=== PATIENT | male | born 1960 | race Hispanic/Latino ===

== ENCOUNTER → 2018-05-23 | Day surgery (SDC) | payer OTHER ==
[~2018-05-23] MED LIST: ANASTROZOLE1 MG PO; BENZONATATE200 MG PO; FENTANYL CITRATE/PF 100MCG/2 ML INJ ONE; FISH OIL 1,2001 EACH PO; GLUCAGON FOR INJ 1 MG VIAL ONE; LISINOPRIL5 MG PO; MIDAZOLAM HCL 2 MG/2 ML VIAL ONE; PANTOPRAZOLE SO40 MG PO; PRAVASTATIN SOD20 MG PO; PROPOFOL IV EMULSION 10 MG/ML 50 ML VIAL ONE; SIMVASTATIN20 MG; SIMVASTATIN40 MG PO; STRIANT30 MG PO; ZYRTEC10 M1 PO
--- NOTE | 2018-05-23 19:23 | Operative Report ---
DATE OF PROCEDURE: May 23, 2018 REFERRING PHYSICIAN: Dr. Neville Knowles. PROCEDURES PERFORMED 1. Esophagogastroduodenoscopy with biopsies. 2. Colonoscopy with polypectomy. INDICATIONS FOR EGD: Dyspepsia. INDICATIONS FOR COLONOSCOPY: History of colon polyps. MEDICATION: Patient was done under MAC. Please see anesthesiologist's note. PROCEDURE: With patient in left lateral decubitus position, a flexible fiberoptic Olympus gastroscope was introduced into the esophagus under direct visualization without any difficulty. There was some patchy erythema noted in distal esophagus. The scope was then advanced with ease into the stomach traversing an approximately 4-cm hiatal hernia. Mucosa overlying the antrum revealed some diffuse erythema and moderate edema, and biopsies were obtained and sent to stain for H. pylori. Several hyperplastic-appearing polyps were noted in the body. Some were partially excised with the cold biopsy forceps. The pylorus was of normal contour and shape. It was intubated with ease, and the scope was advanced all the way to the 2nd portion of the duodenum. The scope was then withdrawn slowly. Mucosa overlying the proximal 2nd portion appeared to be within normal limits. An approximately 6-mm nodule was noted in the duodenal bulb and that was biopsied. The scope was then withdrawn back into the stomach and retroflexed. Mucosa overlying the fundus appeared to be within normal limits. The previously described hiatal hernia was also noted in the retroflexed position. Some postoperative changes were also noted in the upper body. The scope was then straightened out. The stomach was decompressed. The scope was subsequently withdrawn. Patient tolerated the procedure well. IMPRESSION 1. Distal esophagitis, mild. 2. A 4-cm hiatal hernia. 3. Gastritis, biopsied. Biopsies sent to stain for Helicobacter pylori. 4. Gastric polyps, hyperplastic appearing, some partially excised with the cold biopsy forceps. 5. Duodenal bulb nodule, biopsied. PLAN: Follow up histology. Initiate Protonix 40 mg. 1 p.o. q.a.m. a.c. Patient was then turned around; and after adequate lubrication of the anal canal, a flexible fiberoptic Olympus colonoscope was inserted into the rectum with ease and advanced all the way to the cecum. The scope was then withdrawn slowly, and there was melanosis coli noted throughout the colon. Two polyps were hot biopsied from the transverse colon. Diverticular disease was noted to involve the sigmoid colon. Three polyps were hot biopsied from the sigmoid colon. Two polyps were hot biopsied from the rectum. The scope was then retroflexed into the distal rectum and small internal hemorrhoids were noted, none of which was actively bleeding. The scope was then straightened out and was subsequently withdrawn. Patient tolerated the procedure well. IMPRESSION 1. Melanosis coli. 2. Transverse colon polyps x 2, hot biopsied. 3. Diverticulosis. 4. Sigmoid colon polyps x 3, hot biopsied. 5. Rectal polyps x 2, hot biopsied. 6. Internal hemorrhoids, none actively bleeding. PLAN: Follow up histology. Initiate high-fiber, low-fat diet. Initiate high-fiber supplement. Patient will need a followup colonoscopy in 3 years. Job#: [id number] LPA cc:DR. NEVILLE KNOWLES
--- OUTSIDE RECORDS SUMMARY | 2018-06-02 11:55 | XMS REPORT ---
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 Jul 16, 2012 Active Problem 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 Problem Hyperlipidemia E78.5 Active Problem Hyperlipidemia 272.4 Active Problem Gallbladder sludge K82.8 Active Problem Abnormal findings on diagnostic imaging of liver and biliary tract R93.2 Active Problem Annual Physical (Routine general medical examination at health care facility) V70.0 Jun 23, 2012 Active Problem Familial hyperlipoproteinemia, 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 Jun 23, 2012 Active Problem Hepatic steatosis K76.0 Active Problem Hyperglycemia (Other abnormal blood chemistry) 790.6 Jul 16, 2012 Active Problem Mixed hyperlipidemia E78.2 Active Problem Male hypogonadism E29.1 Active Problem Elevated blood-pressure reading, without diagnosis of hypertension R03.0 Active Problem Type 2 diabetes mellitus with other specified complication E11.69 Active Problem Tension headache 307.81 Jun 23, 2012 Active Problem History of colon polyps V12.72 Active Problem Special screening for malignant neoplasms, colon V76.51 Jun 23, 2012 Active Problem Essential hypertension, benign 401.1 Jun 23, 2012 Active Problem Chronic rhinitis 472.0 Active Problem Essential hypertension, benign 401.1 Active Problem Nonspecific (abnormal) findings on radiological and other examination of gastrointestinal tract 793.4 Active Problem Hyperglycemia (Other abnormal blood chemistry) 790.6 Active Medications No Known Medications Results No Known Results Summary Purpose eClinicalWorks Submission
--- OUTSIDE RECORDS SUMMARY | 2018-06-02 11:55 | XMS REPORT | Continuity of Care Document ---
Author Author [facility] Interface Address Unknown Phone Unavailable Problems Problem Status Onset Date Classification Date Reported Comments Source Body mass index 25-29 - overweight 04/05/2018 Diagnosis 04/05/2018 [facility] Tachycardia 04/05/2018 Diagnosis 04/05/2018 [facility] Cough 04/05/2018 Diagnosis 04/05/2018 [facility] Posterior rhinorrhea 04/05/2018 Diagnosis 04/05/2018 [facility] Acute pharyngitis 04/05/2018 Diagnosis 04/05/2018 [facility] Viral upper respiratory tract infection 04/05/2018 Diagnosis 04/05/2018 [facility] Body Mass Index 25-29 - Overweight 04/05/2018 Problem 04/05/2018 [facility] Acute upper respiratory infection 09/17/2016 Diagnosis 09/17/2016 [facility] Influenza-like symptoms 06/23/2016 Diagnosis 06/23/2016 [facility] Headache Resolved 07/16/2012 Problem 04/10/2018 2.16.840.1.386601.4.391.11.28765 Tinnitus aurium Resolved 07/16/2012 Problem 04/10/2018 2.16.840.1.931525.4.391.11.13842 Annual Physical Resolved 06/23/2012 Problem 04/10/2018 2.16.840.1.361447.4.391.11.22150 Familial hyperlipoproteinemia, type I Resolved 06/23/2012 Problem 04/10/2018 2.16.840.1.712972.4.391.11.69909 Special screening for malignant neoplasms, colon Resolved 06/23/2012 Problem 04/10/2018 2.16.840.1.629754.4.391.11.96712 Hepatic steatosis Active Problem 04/10/2018 2.16.840.1.428237.4.391.11.69989 Abnormal findings on diagnostic imaging of liver and biliary tract Active Problem 04/10/2018 2.16.840.1.205067.4.391.11.66722 Gallbladder sludge Active Problem 04/10/2018 2.16.840.1.510295.4.391.11.16364 Nonspecific findings on radiological and other examination of gastrointestinal tract Active Problem 04/10/2018 2.16.840.1.535961.4.391.11.52073 Chronic rhinitis Active Problem 04/10/2018 2.16.840.1.518186.4.391.11.59411 Subjective tinnitus Active Problem 04/10/2018 2.16.840.1.436042.4.391.11.44923 Tension headache Active Problem 04/10/2018 2.16.840.1.549057.4.391.11.33982 Essential Familial Hyperlipidemia Active Problem 04/10/2018 2.16.840.1.533443.4.391.11.39828 Hyperlipidemia Active Problem 04/10/2018 2.16840.1.924084.4.391.11.02097 Hyperlipidemia Active Problem 04/10/2018 2.16.840.1.434132.4.391.11.62989 Hyperglycemia Active Problem 04/10/2018 2.16840.1.098067.4.391.11.81656 Mixed hyperlipidemia Active Diagnosis 04/10/2018 2.16.840.1.139250.4.391.11.70826 Male hypogonadism Active Diagnosis 04/10/2018 2.16840.1.952594.4.391.11.90902 Elevated blood-pressure reading, without diagnosis of hypertension Active Problem 04/10/2018 2.16.840.1.837655.4.391.11.81512 Type 2 diabetes mellitus with other specified complication Active Problem 04/10/2018 2.16.840.1.262147.4.391.11.05211 History of colon polyps Active Problem 04/10/2018 2.16.840.1.091170.4.391.11.74135 Essential hypertension, benign Active Problem 04/10/2018 2.16.840.1.418835.4.391.11.65629 RUQ abdominal pain Active Problem 04/10/2018 2.16.840.1.886296.4.391.11.61792 History of BPH Active Problem 04/10/2018 2.16.840.1.826494.4.391.11.71947 Elevated hematocrit Active Problem 04/10/2018 2.16.840.1.692938.4.391.11.34694 Alopecia areata Active Diagnosis 11/28/2016 2.16.840.1.082330.4.391.11.86411 Hyperlipemia, mixed Active Problem 11/28/2016 2.16.840.1.186880.4.391.11.84959 Neurasthenia Active Diagnosis 02/16/2016 2.16.840.1.686418.4.391.11.92381 Elevated blood pressure Active Diagnosis 02/16/2016 2.16.840.1.919632.4.391.11.20150 Overweight Active Diagnosis 02/16/2016 2.16.840.1.308693.4.391.11.39447 Hx of colonic polyps Active Problem 04/10/2018 2.16.840.1.020610.4.391.11.28120 High serum estradiol Active Problem 04/10/2018 2.16.840.1.392701.4.391.11.26939 Otitis Media Problem 09/17/2016 [facility] Allergic Rhinitis Problem 09/17/2016 [facility] Influenza Problem 09/17/2016 [facility] Influenza-like Symptoms Problem 09/17/2016 [facility] Medications Medication Details Route Status Patient Instructions Ordering Provider Order Date Source Anastrozole 1 tablet Orally Active 1 MG Orally Once per week Knowles 07/06/2018 2.16.840.1.277852.4.391.11.88765 Anastrozole 1 tablet Orally Active 1 MG Orally Once per week Knowles 09/04/2017 2.16.840.1.184924.4.391.11.61124 Axiron 1 pump under each axilla Topical Active 30 MG/ACT Topical once a day Knowles 08/23/2016 2.16.840.1.893994.4.391.11.19211 Axiron 1 pump under each axilla Topical Active 30 MG/ACT Topical once a day Knowles 08/23/2016 2.16.840.1.489287.4.391.11.80912 AndroGel 1 pump application to each shoulder Transdermal Active 40.5 MG/2.5GM (1.62%) Transdermal Once a day Knowles 08/20/2016 2.16.840.1.160308.4.391.11.94598 Simvastatin 1 tablet in the evening Orally Active 40 MG Orally Once a day Knowles 06/29/2015 2.16.840.1.083798.4.391.11.48807 Simvastatin 1 tablet in the evening Orally Active 40 mg Orally Once a day Knowles 06/29/2015 2.16.840.1.996336.4.391.11.75232 Cetirizine HCl 1 tablet Orally Active 10 MG Orally Once a day Knowles 2.16840.1.366892.4.391.11.55505 ZyrTEC 1 tablet as needed Orally Active 10 MG Orally Once a day Knowles 2.840.1.791987.4.391.11.86176 Clobetasol Propionate 1 application to affected area Externally Active 0.05 % Externally Twice a day Knowles 2.840.1.182840.4.391.11.32384 ZyrTEC 1 tablet as needed Orally Active 10 MG Orally Once a day Knowles 2.16840.1.189751.4.391.11.48011 Fluticasone Propionate 1 spray in each nostril Nasally Active 50 MCG/ACT Nasally twice a day (bid) Knowles 2.16840.1.215828.4.391.11.32855 Simvastatin 1 tablet in the evening Orally Active 40 mg Orally Once a day Knowles 2.16840.1.608543.4.391.11.16827 Axiron 1 pump under each axilla Topical Active 30 MG/ACT Topical once a day Knowles 2.16840.1.833622.4.391.11.48200 Anastrozole 1 tablet Orally Active 1 MG Orally Once per week Knowles 2.840.1.378178.4.391.11.83666 Fluticasone propionate 0.05 MG/ACTUAT Metered Dose Nasal [place] fluticasone 50 mcg/actuation nasal spray,suspension [place] 2 sprays twice a day by intranasal route as directed for 10 days. Active [facility] Simvastatin 40 MG Oral Tablet simvastatin 40 mg tablet Active [facility] 60 ACTUAT Testosterone 30 MG/ACTUAT Topical Solution [Axiron] Axiron 30 mg/actuation (1.5 mL) transderm solution in metered pump Active [facility] Brompheniramine Maleate 0.4 MG/ML / Dextromethorphan Hydrobromide 2 MG/ML / Pseudoephedrine Hydrochloride 6 MG/ML Oral Solution [Bromfed DM] Bromfed DM 2 mg-30 mg-10 mg/5 mL syrup Take 10 mL 3 times a day by oral route. Active [facility] Oseltamivir 75 MG Oral Capsule [Tamiflu] Tamiflu 75 mg capsule Active [facility] Allergies, Adverse Reactions, Alerts Substance Category Reaction Severity Reaction type Status Date Reported Comments Source N.K.D.A. Adverse Reaction Info Not Available Adverse Reaction Active 04/07/2018 2.16.840.1.753359.4.391.11.98191 Immunizations Immunization Date Given Site Status Last Updated Comments Source FLUVIRIN - Influenza (split) 08/20/2016 completed 2.16.840.1.689871.4.391.11.18136 Results Order Name Results Value Reference Range Date Interpretation Comments Source RESULT negative 04/05/2018 [facility] SWAB LOCATION Left and Right tonsillar pillars 04/05/2018 [facility] Influenza A negative 04/05/2018 [facility] Influenza B negative 04/05/2018 [facility] Influenza A negative 06/23/2016 [facility] Influenza B negative 06/23/2016 [facility] Vital Signs Vital Sign Value Date Comments Source Weight 164.6 04/07/2018 2.16.840.1.774025.4.391.11.79977 Height 65 04/07/2018 2.16.840.1.057927.4.391.11.84887 Temperature Oral (F) 97.0 F 04/07/2018 2.16.840.1.174669.4.391.11.94868 Heart Rate 96 04/07/2018 2.16.840.1.468221.4.391.11.65806 Diastolic (mm Hg) 70 04/05/2018 [facility] Height 65 04/05/2018 [facility] Systolic (mm Hg) 100 04/05/2018 [facility] Weight 166 04/05/2018 [facility] Weight 163 12/25/2017 2.16.840.1.914193.4.391.11.42176 Height 65 12/25/2017 2.16.840.1.384412.4.391.11.93328 Temperature Oral (F) 97.1 F 12/25/2017 2.16.840.1.136698.4.391.11.04767 Heart Rate 82 12/25/2017 2.16.840.1.788545.4.391.11.51193 Weight 162.8 11/10/2017 2.16.840.1.357239.4.391.11.95348 Height 65 11/10/2017 2.16.840.1.817709.4.391.11.97541 Temperature Oral (F) 97.8 F 11/10/2017 2.16.840.1.982274.4.391.11.18658 Heart Rate 80 11/10/2017 2.16.840.1.365916.4.391.11.85076 Weight 163 09/04/2017 2.16.840.1.660939.4.391.11.61187 Height 65 09/04/2017 2.16.840.1.478131.4.391.11.25626 Temperature Oral (F) 98.6 F 09/04/2017 2.16.840.1.891929.4.391.11.04512 Heart Rate 78 09/04/2017 2.16.840.1.864688.4.391.11.13460 Weight 161.8 05/29/2017 2.16.840.1.791677.4.391.11.20989 Height 65 05/29/2017 2.16.840.1.592232.4.391.11.22269 Temperature Oral (F) 97.3 F 05/29/2017 2.16.840.1.804404.4.391.11.17457 Heart Rate 72 05/29/2017 2.16.840.1.955308.4.391.11.78764 Weight 163 05/01/2017 2.16.840.1.873881.4.391.11.61302 Height 65 05/01/2017 2.16.840.1.784347.4.391.11.01214 Temperature Oral (F) 97.8 F 05/01/2017 2.16.840.1.588259.4.391.11.31963 Heart Rate 71 05/01/2017 2.16.840.1.284626.4.391.11.53025 Weight 161.4 02/27/2017 2.16.840.1.862350.4.391.11.63404 Height 65 02/27/2017 2.16.840.1.476590.4.391.11.92082 Temperature Oral (F) 97.7 F 02/27/2017 2.16.840.1.372005.4.391.11.01515 Heart Rate 73 02/27/2017 2.16.840.1.053603.4.391.11.68688 Weight 158.2 11/14/2016 2.16.840.1.337113.4.391.11.40416 Height 65 11/14/2016 2.16.840.1.951325.4.391.11.07869 Temperature Oral (F) 97.1 F 11/14/2016 2.16.840.1.499976.4.391.11.96823 Heart Rate 66 11/14/2016 2.16.840.1.572406.4.391.11.42353 Diastolic (mm Hg) 76 09/17/2016 [facility] Height 65 09/17/2016 [facility] Systolic (mm Hg) 120 09/17/2016 [facility] Weight 161 09/17/2016 [facility] Weight 168 08/20/2016 2.16.840.1.320144.4.391.11.57349 Height 65 08/20/2016 2.16.840.1.606652.4.391.11.08653 Temperature Oral (F) 97.3 F 08/20/2016 2.16.840.1.305723.4.391.11.24808 Heart Rate 80 08/20/2016 2.16.840.1.899796.4.391.11.90416 Diastolic (mm Hg) 80 06/23/2016 [facility] Height 65 06/23/2016 [facility] Systolic (mm Hg) 130 06/23/2016 [facility] Weight 168 06/23/2016 [facility] Weight 167.4 02/12/2016 2.16.840.1.343707.4.391.11.55347 Height 65 02/12/2016 2.16.840.1.733500.4.391.11.16393 Temperature Oral (F) 98.4 F 02/12/2016 2.16.840.1.789667.4.391.11.91604 Heart Rate 78 02/12/2016 2.16.840.1.654886.4.391.11.51294 Encounters Location Location Details Encounter Type Encounter Number Reason For Visit Attending Provider ADM Date DC Date Status Source Aldair Knowles MD [facility] follow up labs [id number] 02/12/2016 02/12/2016 2.16.840.1.971019.4.391.11.18202 Aldair Knowles MD [facility] follow up labs [id number] 02/12/2016 02/12/2016 2.16.840.1.001927.4.391.11.51663 Aldair Knowles MD [facility] follow up labs [id number] 02/12/2016 02/12/2016 2.16.840.1.847061.4.391.11.36520 Aldair Knowles MD [facility] follow up labs [id number] 02/12/2016 02/12/2016 2.16.840.1.864768.4.391.11.91728 Aldair Knowles MD [facility] follow up labs [id number] 02/12/2016 02/12/2016 2.16.840.1.226064.4.391.11.22397 Aldair Knowles MD [facility] follow up labs [id number] 02/12/2016 02/12/2016 2.16.840.1.405781.4.391.11.97226 Aldair Knowles MD [facility] follow up labs [id number] 02/12/2016 02/12/2016 2.16.840.1.351161.4.391.11.24381 [place] [id number] Lyndsey Pan, [employer]: [address] [facility], [place] [address], Ph. [id number] Lyndsey Pan 06/23/2016 Echo Knowles MD [facility] labs & refills [id number] 08/20/2016 08/20/2016 2.16.840.1.141224.4.391.11.90437 Aldair Knowles MD [facility] labs & refills [id number] 08/20/2016 08/20/2016 2.16.840.1.136957.4.391.11.53985 Aldair Knowles MD [facility] labs & refills [id number] 08/20/2016 08/20/2016 2.16.840.1.015722.4.391.11.52041 Aldair Knowles MD [facility] labs & refills [id number] 08/20/2016 08/20/2016 2.16.840.1.470278.4.391.11.51708 Aldair Knowles MD [facility] Needs call back from Medical Staff [id number] 08/22/2016 08/22/2016 2.16.840.1.456859.4.391.11.41082 Aldair Knowles MD [facility] Needs call back from Medical Staff [id number] 08/22/2016 08/22/2016 2.16.840.1.536425.4.391.11.95012 Aldair Knowles MD [facility] Needs call back from Medical Staff [id number] 08/22/2016 08/22/2016 2.16.840.1.439370.4.391.11.17983 Aldair Knowles MD [facility] Needs call back from Medical Staff [id number] 08/22/2016 08/22/2016 2.16.840.1.222505.4.391.11.53517 Aldair Knowles MD [facility] Needs call back from Medical Staff [id number] 08/22/2016 08/22/2016 2.16.840.1.743913.4.391.11.16981 Aldair Knowles MD [facility] Needs call back from Medical Staff [id number] 08/22/2016 08/22/2016 2.16.840.1.258364.4.391.11.48155 Aldair Knowles MD [facility] Needs call back from Medical Staff [id number] 08/22/2016 08/22/2016 2.16.840.1.581062.4.391.11.76955 Aldair Knowles MD [facility] Needs call back from Medical Staff [id number] 08/22/2016 08/22/2016 2.16.840.1.773326.4.391.11.92004 Aldair Knowles MD [facility] Needs call back from Medical Staff [id number] 08/22/2016 08/22/2016 2.16.840.1.511381.4.391.11.72230 Aldair Knowles MD [facility] Needs call back from Medical Staff [id number] 08/22/2016 08/22/2016 2.16.840.1.846629.4.391.11.35645 Aldair Knowles MD [facility] Needs call back from Medical Staff [id number] 08/22/2016 08/22/2016 2.16.840.1.840308.4.391.11.71745 Aldair Knowles MD [facility] Needs call back from Medical Staff [id number] 08/22/2016 08/22/2016 2.16.840.1.648570.4.391.11.35344 Aldair Knowles MD [facility] Other [id number] 08/23/2016 08/23/2016 2.16.840.1.876695.4.391.11.08891 Aldair Knowles MD [facility] Other [id number] 08/23/2016 08/23/2016 2.16.840.1.291061.4.391.11.15939 Aldair Knowles MD [facility] Other [id number] 08/23/2016 08/23/2016 2.16.840.1.577234.4.391.11.86493 [place] - [facility] - [id number]_Nlvblait Bipin Pan, [employer]-C: [address] [place] [address], Ph. [id number] Bipin Pan 09/17/2016 Echo Knowles MD [facility] Axiron refill not covered by insurance [id number] 10/01/2016 10/01/2016 2.16.840.1.257109.4.391.11.21752 Aldair Knowles MD [facility] Axiron refill not covered by insurance [id number] 10/01/2016 10/01/2016 2.16.840.1.498837.4.391.11.03353 Aldair Knowles MD [facility] Prior Auth [id number] 10/02/2016 10/02/2016 2.16.840.1.680650.4.391.11.77001 Aldair Knowles MD [facility] Prior Auth [id number] 10/02/2016 10/02/2016 2.16.840.1.193857.4.391.11.29398 [place] - [facility] - [id number][facility]du[facility] Cassie Templeton PA-C: [address] [place] [address], Ph. [id number] Cassie Templeton 04/05/2018 [facility] Procedures Procedure Code Date Perfomer Comments Source
--- OUTSIDE RECORDS SUMMARY | 2018-06-02 11:55 | XMS REPORT ---
Author Author Aldair Knowles Organization [employer] Address Unknown Phone Unavailable Care Team Providers Care Bean Snapper Name Role Phone Aldair Knowles CP Unavailable Allergies No Known Allergies Problems Problem Type Condition Code Onset Dates Condition Status Assessment Hepatic steatosis K76.0 Active Assessment Abnormal findings on diagnostic imaging of liver and biliary tract R93.2 Active Assessment Gallbladder sludge K82.8 Active Problem Nonspecific (abnormal) findings on radiological [...]
--- OUTSIDE RECORDS SUMMARY | 2018-06-02 11:55 | XMS REPORT ---
Author Author Aldair Knowles Organization [employer] Address Unknown Phone Unavailable Care Team Providers Care Cad Application Support Specialist Name Role Phone Aldair Knowles CP Unavailable [...]
--- OUTSIDE RECORDS SUMMARY | 2018-06-02 11:55 | XMS REPORT ---
Author Author Aldair Knowles Organization [employer] Address Unknown Phone Unavailable Care Team Providers Care Senior Courtroom Clerk Name Role Phone Aldair Knowles CP Unavailable Allergies No Known Allergies Problems Problem Type Condition Code Onset Dates Condition Status Assessment History of BPH Z87.438 Active Problem Nonspecific (abnormal) findings on radiological and other examination of gastrointestinal tract 793.4 Jul 16, 2012 Active Problem Special screening for malignant neoplasms, colon V76.51 Jun 23, 2012 Active Problem Annual Physical (Routine general medical examination at health care facility) V70.0 Jun 23, 2012 Active Problem Tension headache 307.81 Jun 23, 2012 Active Problem Essential hypertension, benign 401.1 Jun 23, 2012 Active Problem Hyperlipidemia 272.4 Active Problem Chronic rhinitis 472.0 Jul 16, 2012 Active Problem Hyperlipidemia E78.5 Active Problem Hyperglycemia (Other abnormal blood chemistry) 790.6 Jul 16, 2012 Active Problem Male hypogonadism E29.1 Active Problem Type 2 diabetes mellitus with other specified complication E11.69 Active Problem Mixed hyperlipidemia E78.2 Active Problem RUQ abdominal pain R10.11 Active Problem History of BPH Z87.438 Active Problem 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 Jul 16, 2012 Active Problem Familial hyperlipoproteinemia, 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 Jun 23, 2012 Active Problem Elevated hematocrit R71.8 Active Problem Headache 784.0 Jul 16, 2012 Active Problem Gallbladder sludge K82.8 Active Problem Elevated blood-pressure reading, without diagnosis of hypertension R03.0 Active Problem Hepatic steatosis K76.0 Active Problem Abnormal findings on diagnostic imaging of liver and biliary tract R93.2 Active Problem Essential hypertension, benign 401.1 Active Problem Subjective tinnitus 388.31 Active Problem History of colon polyps V12.72 Active Problem Chronic rhinitis 472.0 Active Problem Hyperglycemia (Other abnormal blood chemistry) 790.6 Active Problem Nonspecific (abnormal) findings on radiological and other examination of gastrointestinal tract 793.4 Active Problem Tension headache 307.81 Active Problem 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
--- OUTSIDE RECORDS SUMMARY | 2018-06-02 11:55 | XMS REPORT ---
Author Author Aldair Knowles Organization [employer] Address Unknown Phone Unavailable Care Team Providers Care Manager Programs Name Role Phone Aldair Knowles CP Unavailable [...]
--- OUTSIDE RECORDS SUMMARY | 2018-06-02 11:55 | XMS REPORT ---
Author Author Aldair Knowles [facility] eClinical[employer] Address Unknown Phone Unavailable Care Team Providers Care Rotary Dryer Operator Name Role Phone Aldair Knowles CP Unavailable Allergies, Adverse Reactions, Alerts Substance Reaction Event Type N.K.D.A. Info Not Available Non Drug Allergy Problems Problem Type Condition Code Onset Dates Condition Status Assessment Elevated blood-pressure reading, without diagnosis of hypertension R03.0 Active Assessment Alopecia areata L63.9 Active Assessment Mixed hyperlipidemia E78.2 Active Problem Hyperglycemia (Other abnormal blood chemistry) 790.6 Active Assessment Male hypogonadism E29.1 Active Problem Chronic rhinitis 472.0 Active Problem Nonspecific (abnormal) findings on radiological and other examination of gastrointestinal tract 793.4 Jul 16, 2012 Active Problem Essential hypertension, benign 401.1 Active Problem Tension headache 307.81 Active Problem Subjective tinnitus 388.31 Active Problem Type 2 diabetes mellitus with other specified complication E11.69 Active Problem Mixed hyperlipidemia E78.2 Active Problem 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6 Jul 16, 2012 Active Problem Familial hyperlipoproteinemia, 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 Jun 23, 2012 Active Problem History of colon polyps V12.72 Active Problem Nonspecific (abnormal) findings on radiological and other examination of gastrointestinal tract 793.4 Active Problem Essential hypertension, benign 401.1 Jun 23, 2012 Active Problem Tension headache 307.81 Jun 23, 2012 Active Medications Medication Code System Code Instructions Start Date End Date Status Dosage ZyrTEC NDC 0 10 MG Orally Once a day Active 1 tablet as needed Axiron NDC [address]-47 30 MG/ACT Topical once a day Aug 23, 2016 Active 1 [place] [address]-15 40 MG Orally Once a day Jun 29, 2015 Active 1 tablet in the evening Vital Signs Date/Time: November 14, 2016 Weight 158.2 lbs Height 65 in Temperature 97.1 F Cardiac Monitoring Heart Rate 66 /min BMI 26.32 Index Results No Known Results Summary Purpose eClinicalWorks Submission
--- OUTSIDE RECORDS SUMMARY | 2018-06-02 11:55 | XMS REPORT ---
Author Author Aldair Knowles [facility] eClinical[employer] Address Unknown Phone Unavailable Care Team Providers Care Cook Specialty Foreign Food Name Role Phone Aldair Knowles CP Unavailable Allergies, Adverse Reactions, Alerts Substance Reaction Event Type N.K.D.A. Info Not Available Non Drug Allergy Problems Problem Type Condition Code Onset Dates Condition Status Problem Hyperglycemia (Other abnormal blood chemistry) 790.6 Active Assessment RUQ abdominal pain R10.11 Active Problem Chronic rhinitis 472.0 Active Problem [...] Headache 784.0 Jul 16, 2012 Active Problem Elevated blood-pressure reading, without diagnosis of hypertension R03.0 Active Problem Chronic rhinitis 472.0 Jul 16, [...] Instructions Start Date End Date Status Dosage Axiron [facility] [place] [address]-82 30 MG/ACT Topical once a day Aug 23, 2016 Active 1 pump under each axilla Cetirizine HCl [facility] [address]-50 10 MG Orally Once a day Active 1 tablet Simvastatin [facility] [address]-01 40 MG Orally Once a day Jun 29, 2015 Active 1 tablet in the evening Vital Signs Date/Time: May 01, 2017 Weight 163 lbs Height 65 in Temperature 97.8 F Cardiac Monitoring Heart Rate 71 /min BMI 27.12 Index Results No Known Results Summary Purpose eClinicalWorks Submission
--- OUTSIDE RECORDS SUMMARY | 2018-06-02 11:55 | XMS REPORT ---
Author Author Aldair Knowles [facility] eClinical[employer] Address Unknown Phone Unavailable Care Team Providers Care Linen Manager Name Role Phone Aldair Knowles CP Unavailable Allergies, Adverse Reactions, Alerts Substance Reaction Event Type N.K.D.A. Info Not Available Non Drug Allergy Problems Problem Type Condition Code Onset Dates Condition Status Assessment Hepatic steatosis K76.0 Active Assessment Gallbladder sludge K82.8 Active Assessment Mixed hyperlipidemia E78.2 Active Assessment Male hypogonadism E29.1 Active Problem Nonspecific (abnormal) findings on radiological [...] liver and biliary tract R93.2 Active Assessment Elevated hematocrit R71.8 Active Problem Essential hypertension, benign 401.1 Active Assessment History of BPH Z87.438 Active Problem Subjective tinnitus 388.31 Active Assessment Annual physical exam Z00.00 Active Problem History of colon polyps V12.72 Active Assessment RUQ abdominal pain R10.11 Active Problem Chronic rhinitis 472.0 Active Problem Hyperglycemia (Other abnormal blood chemistry) 790.6 Active Problem Nonspecific (abnormal) findings on radiological and other examination of gastrointestinal tract 793.4 Active Problem Tension headache 307.81 Active Problem 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
--- OUTSIDE RECORDS SUMMARY | 2018-06-02 11:55 | XMS REPORT ---
Author Author Aldair Knowles [facility] eClinical[employer] Address Unknown Phone Unavailable Care Team Providers Care Railroad Car Cleaner Name Role Phone Aldair Knowles CP Unavailable Allergies, Adverse Reactions, Alerts Substance Reaction Event Type N.K.D.A. Info Not Available Non Drug Allergy Problems Problem Type Condition Code Onset Dates Condition Status Assessment Male hypogonadism E29.1 Active Assessment Elevated blood-pressure reading, without diagnosis of hypertension R03.0 Active Problem Hyperglycemia (Other abnormal blood chemistry) 790.6 Active Assessment Mixed hyperlipidemia E78.2 Active Problem Chronic rhinitis 472.0 Active Problem [...] Instructions Start Date End Date Status Dosage Simvastatin [facility] [address]-29 40 MG Orally Once a day Jun 29, 2015 Active 1 tablet in the evening ZyrTEC NDC 0 10 MG Orally Once a day Active 1 tablet as needed Axiron [facility] 2] [address]-86 30 MG/ACT Topical once a day Aug 23, 2016 Active 1 pump under each axilla Clobetasol Propionate [facility] 2] [address]-87 0.05 % Externally Twice a day Active 1 application to affected area Vital Signs Date/Time: February 27, 2017 Weight 161.4 lbs Height 65 in Temperature 97.7 F Cardiac Monitoring Heart Rate 73 /min BMI 26.86 Index Results No Known Results Summary Purpose eClinicalWorks Submission
--- OUTSIDE RECORDS SUMMARY | 2018-06-02 11:56 | XMS REPORT ---
Author Author Aldair Knowles [facility] eClinicalWorks Address Unknown Phone Unavailable Care Team Providers Care Provider Network Analyst Name Role Phone Aldair Knowles CP Unavailable Allergies, Adverse Reactions, Alerts Substance Reaction Event Type N.K.D.A. Info Not Available Non Drug Allergy Problems Problem Type Condition Code Onset Dates Condition Status Assessment Elevated hematocrit R71.8 Active Assessment High serum estradiol R79.89 Active Assessment Mixed hyperlipidemia E78.2 Active Assessment [...] Start Date End Date Status Dosage Axiron [facility] 95854692659 30 MG/ACT Topical once a day Active 1 pump under each axilla Simvastatin [facility] 39718131900 40 mg Orally Once a day Active 1 tablet in the evening Anastrozole [facility] 84152869033 1 MG Orally Once per week Sep 04, 2017 Active 1 tablet Vital Signs Date/Time: Sep 04, 2017 Weight 163 lbs Height 65 in Temperature 98.6 F Cardiac Monitoring Heart Rate 78 /min BMI 27.12 Index Results No Known Results Summary Purpose eClinicalWorks Submission
--- OUTSIDE RECORDS SUMMARY | 2018-06-02 11:56 | XMS REPORT ---
Author Author Aldair Knowles [facility] eClinicalWorks Address Unknown Phone Unavailable Care Team Providers Care Commissary Representative Name Role Phone Aldair Knowles CP Unavailable Allergies, Adverse Reactions, Alerts Substance Reaction Event Type N.K.D.A. Info Not Available Non Drug Allergy Problems Problem Type Condition Code Onset Dates Condition Status Assessment Annual physical exam Z00.00 Active Problem Nonspecific (abnormal) findings on radiological [...] Instructions Start Date End Date Status Dosage Anastrozole [facility] 53642429307 1 MG Orally Once per week Sep 04, 2017 Active 1 tablet Simvastatin [facility] 02622689139 40 mg Orally Once a day Active 1 tablet in the evening Axiron [facility] 90645035246 30 MG/ACT Topical once a day Active 1 pump under each axilla Vital Signs Date/Time: November 10, 2017 Weight 162.8 lbs Height 65 in Temperature 97.8 F Cardiac Monitoring Heart Rate 80 /min BMI 27.09 Index Results No Known Results Summary Purpose eClinicalWorks Submission
--- OUTSIDE RECORDS SUMMARY | 2018-06-02 11:56 | XMS REPORT ---
Author Author Aldair Knowles [facility] eClinicalWorks Address Unknown Phone Unavailable Care Team Providers Care Boning Room Worker Name Role Phone Aldair Knowles CP Unavailable [...] Start Date End Date Status Dosage Anastrozole [facility] 53577481046 1 MG Orally Once per week Active 1 tablet Simvastatin [facility] 27078814284 40 mg Orally Once a day Active 1 tablet in the evening Axiron [facility] 02241730625 30 MG/ACT Topical once a day Active 1 pump under each axilla Vital Signs Date/Time: December 25, 2017 Weight 163 lbs Height 65 in Temperature 97.1 F Cardiac Monitoring Heart Rate 82 /min BMI 27.12 Index Results No Known Results Summary Purpose eClinicalWorks Submission
--- OUTSIDE RECORDS SUMMARY | 2018-06-02 11:56 | XMS REPORT ---
Author Author Aldair Knowles [facility] eClinicalWorks Address Unknown Phone Unavailable Care Team Providers Care Road Roller Operator Name Role Phone Aldair Knowles Unavailable Encounters Encounter Location Date follow up labs Aldair Knowles MD [facility] February 12, 2016 Needs call back from Medical Staff Aldair Knowles MD [facility] Aug 22, 2016 Needs call back from Medical Staff Aldair Knowles MD [facility] Aug 22, 2016 Problems Problem Type Condition ICD-9 Code Onset Dates Condition Status Problem Chronic rhinitis 472.0 Active Problem Subjective tinnitus 388.31 Active Problem Essential hypertension, benign 401.1 Active Problem Mixed hyperlipidemia E78.2 Active Problem Headache 784.0 Jul 16, 2012 Active Problem Male hypogonadism E29.1 Active Problem Chronic rhinitis 472.0 Jul 16, 2012 Active Problem Nonspecific (abnormal) findings on radiological and other examination of gastrointestinal tract 793.4 Jul 16, 2012 Active Problem Type 2 diabetes mellitus with other specified complication E11.69 Active Problem 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 Problem Tension headache 307.81 Active Problem Hyperlipidemia E78.5 Active Problem Hyperlipidemia 272.4 Active Problem Familial hyperlipoproteinemia, 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 Jun 23, 2012 Active Problem Annual Physical (Routine general medical examination at health care facility) V70.0 Jun 23, 2012 Active Problem 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 Jul 16, 2012 Active Problem Hyperglycemia (Other abnormal blood chemistry) 790.6 Jul 16, 2012 Active Problem Tension headache 307.81 Jun 23, 2012 Active Problem History of colon polyps V12.72 Active Problem Special screening for malignant neoplasms, colon V76.51 Jun 23, 2012 Active Problem Nonspecific (abnormal) findings on radiological and other examination of gastrointestinal tract 793.4 Active Problem Essential hypertension, benign 401.1 Jun 23, 2012 Active Problem Hyperglycemia (Other abnormal blood chemistry) 790.6 Active Social History Social History Element Qualifiers Date Reported Supplements . Do you use supplements Yes flax seed and omega-3 Aug 20, 2016 Tobacco Use: . Are you a: former smoker quit 10-2012 Aug 20, 2016 Caffeine intake? . Status: Yes, What type: Coffee, Soft Drinks 3 coffees per day Aug 20, 2016 Do you drink alcohol? . Status: Yes, Type: Liquor mixed drinks, Frequency Socially, Quantity 1 Aug 20, 2016 Summary Purpose eClinicalWorks Submission
--- OUTSIDE RECORDS SUMMARY | 2018-06-02 11:56 | XMS REPORT ---
Author Author Aldair Knowles [employer] Address Unknown Phone Unavailable Care Team Providers Care Mold Swabber Name Role Phone Aldair Knowles CP Unavailable Encounters Encounter Location Date labs & refills Aldair Knowles MD [facility] Aug 20, 2016 Other Aldair Knowles MD [facility] Aug 23, 2016 follow up labs Aldair Knowles MD [facility] February 12, 2016 Needs call back from Medical Staff Aldair Knowles MD [facility] Aug 22, 2016 Needs call back from Medical Staff Aldair Knowles MD [facility] Aug 22, 2016 Problems Problem Type [...] other examination of gastrointestinal tract 793.4 Active Assessment Male hypogonadism E29.1 Active Problem Essential hypertension, benign 401.1 Jun 23, 2012 Active Problem Hyperglycemia (Other abnormal blood chemistry) 790.6 Active Medications Medication Code System Code Instructions Start Date End Date Status Dosage Axiron [facility] [address]-78 30 MG/ACT Topical once a day Aug 23, 2016 Active 1 pump under each axilla AndroGel [facility] [address]-06 40.5 MG/2.5GM (1.62%) Transdermal Once a day Aug 20, 2016 Active 1 pump application to each shoulder Social History Social History Element Qualifiers Date Reported Supplements . Do you use supplements Yes flax seed and omega-3 Aug 20, 2016 Tobacco Use: . Are you a: former smoker quit Aug 20, 2016 Caffeine intake? . Status: Yes, What type: Coffee, Soft Drinks 3 coffees per day Aug 20, 2016 Do you drink alcohol? . Status: Yes, Type: Liquor mixed drinks, Frequency Socially, Quantity 1 Aug 20, 2016 Summary Purpose eClinicalWorks Submission
--- OUTSIDE RECORDS SUMMARY | 2018-06-02 11:56 | XMS REPORT ---
Author Author [facility] Address Unknown Phone Unavailable Care Team Providers Care Mule Driver Name Role Phone NEVILLE GARCIA Unavailable Unavailable Problems This patient has no known problems. Allergies, Adverse Reactions, Alerts This patient has no known allergies or adverse reactions. Medications This patient has no known medications. Results Test Description Test Time Test Comments Text Results Atomic Results Result Comments HEPTOBILIARY W PHARM [place] [address] Patient Name: RITO BYERS MR #: [id number] : 1960 Age/Sex: 57/M Req #: [id number] Adm Physician: Ordered by: NEVILLE GARCIA MD Report #: [id number] Location: [place] Room/Bed: Procedure: [id number] NM/HEPTOBILIARY W PHARM Exam Date: 05/22/17 Exam Time: 1315 REPORT STATUS: Signed Hepatobiliary Scan with Gallbladder Ejection Fraction Clinical information: RUQ abdominal pain x 1 month. Report: Following intravenous administration of 6.3 millicuries of Tc-99m mebrofenin, dynamic images of the abdomen in the anterior projection were obtained through 30 minutes. Sincalide (CCK analog) 1.7 micrograms was administered intravenously over 30 minutes with additional imaging for determination of gallbladder ejection fraction. Perfusion to the liver is normal. Extraction of tracer from the blood pool by the liver parenchyma is normal. Tracer is seen promptly within the biliary tract. The gallbladder begins to fill by 6 minutes post-injection of tracer and fills adequately. Tracer is seen in the small bowel by 20 minutes. The gallbladder ejection fraction with administration of sincalide is 96% (normal greater than 40%). Impression: 1. Filling of the gallbladder excludes the diagnosis of acute cystic duct obstruction/acute cholecystitis. 2. Normal gallbladder ejection fraction of 96% does not support the clinical diagnosis of chronic cholecystitis/gallbladder dyskinesia. Signed by: Dr. Livia Mazariegos M.D. on 05/22/2017 5:30 PM Dictated By: LIVIA MAZARIEGOS MD 29 Transcribed By: ALISE on 05/22/171729 COPY TO: NEVILLE GARCIA MD US ABDOMEN COMPLETE [place] [address] Patient Name: RITO BYERS MR #: [id number] : 1960 Age/Sex: 57/M Req #: [id number] Adm Physician: Ordered by: NEVILLE GARCIA MD Report #: [id number] Location: [place] Room/Bed: Procedure: [id number] US/US ABDOMEN COMPLETE Exam Date: 05/08/17 Exam Time: 814 REPORT STATUS: Signed PROCEDURE: ABDOMINAL ULTRASOUND COMPARISON: None. INDICATIONS: RUQ Abdominal Pain FINDINGS: Liver: 13.6 cm. Increased hepatic parenchymal echogenicity. No focal mass. Main portal vein: 1.1 cm. Hepatopedal flow. Gallbladder: Echogenic mobile debris in the gallbladder. No calculi, gallbladder wall thickening, or pericholecystic fluid. Common Bile Duct: 5.0 mm. Echogenic debris. No echogenic filling defect. Sonographic Horvath's sign: Negative. Right kidney: 11.1 cm. No solid or cystic mass, echogenic calculi, or hydronephrosis. Normal parenchymal echogenicity. Left kidney: 10.6 cm. No solid or cystic mass, echogenic calculi, or hydronephrosis. Normal parenchymal echogenicity. Spleen: 10.2 cm. No focal mass. The pancreas, aorta, and inferior vena cava were insufficiently visualized for comment secondary to overlying bowel gas, postoperative scarring, and increased body habitus. Ascites: None. CONCLUSION: 1. Gallbladder sludge. No sonographic evidence of cholelithiasis or cholecystitis. 2. Echogenic debris in the common bile duct likely represents sludge. No sonographic evidence of choledocholithiasis or obstruction. 3. Hepatic steatosis. Dictated by: Melita Cleary M.D. on 05/08/2017 at 9:30 Electronically approved by: Melita Cleary M.D. on 05/08/2017 at 9:30 Dictated By: MELITA CLEARY MD 9 Transcribed By: MYKEL on 05/08/17929 COPY TO: NEVILLE GARCIA MD
--- OUTSIDE RECORDS SUMMARY | 2018-06-02 11:56 | XMS REPORT ---
Author Author Aldair Knowles [facility] eClinicalWorks Address Unknown Phone Unavailable Care Team Providers Care Hand Flesher Name Role Phone Aldair Knowles Unavailable Allergies, Adverse Reactions, Alerts Substance Reaction Event Type N.K.D.A. Info Not Available Non Drug Allergy Encounters Encounter Location Date labs & refills Aldair Knowles MD [facility] Aug 20, 2016 follow up labs Aldair Knowles MD [facility] February 12, 2016 Needs call back from Medical Staff Aldair Knowles MD [facility] Aug 22, 2016 Needs call back from Medical Staff Aldair Knowles MD [facility] Aug 22, 2016 Problems Problem Type Condition ICD-9 Code Onset Dates Condition Status Problem Nonspecific (abnormal) findings on radiological and other examination of gastrointestinal tract 793.4 Active Assessment Male hypogonadism E29.1 Active Problem Hyperglycemia (Other abnormal blood chemistry) 790.6 Active Assessment Mixed hyperlipidemia E78.2 Active Problem Chronic rhinitis 472.0 Active Problem Subjective tinnitus 388.31 Active Problem Essential hypertension, benign 401.1 Active Problem Mixed hyperlipidemia E78.2 Active Problem Male hypogonadism E29.1 Active Problem Headache 784.0 Jul 16, 2012 Active Problem Chronic rhinitis 472.0 Jul 16, 2012 Active Problem Type 2 diabetes mellitus with other specified complication E11.69 Active Problem Nonspecific (abnormal) findings on radiological and other examination of gastrointestinal tract 793.4 Jul 16, 2012 Active Problem Essential Familial [...] hypertension, benign 401.1 Jun 23, 2012 Active Medications Medication Code System Code Instructions Start Date End Date Status Dosage Simvastatin [facility] [address]-49 40 MG Orally Once a day Jun 29, 2015 Active 1 tablet in the evening ZyrTEC Unknown 0 10 MG Orally Once a day Active 1 tablet as needed AndroGel [facility] [address]-26 40.5 MG/2.5GM (1.62%) Transdermal Once a day [...] Frequency Socially, Quantity 1 Aug 20, 2016 Vital Signs Date/Time: Aug 20, 2016 Weight 168 lbs Height 65 in Temperature 97.3 F Cardiac Monitoring Heart Rate 80 /min Immunizations Vaccine Administration Date FLUVIRIN - Influenza (split) Aug 20, 2016 Summary Purpose eClinicalWorks Submission
--- OUTSIDE RECORDS SUMMARY | 2018-06-02 11:56 | XMS REPORT ---
Author Author Aldair Knowles e[employer] Address Unknown Phone Unavailable Care Team Providers Care Aircraft Parts Assembler Name Role Phone Aldair Knowles CP Unavailable Encounters Encounter Location Date labs & refills Aldair Knowles MD [facility] Aug 20, 2016 Other Aldair Knowles MD [facility] Aug 23, 2016 Axiron refill not covered by insurance Aldair Knowles MD [facility] Oct 01, 2016 Prior Auth Aldair Knowles MD [facility] Oct 02, 2016 follow up labs Aldair Knowles MD [facility] February 12, 2016 Needs call back from Medical Staff Aldair Knowles MD [facility] Aug 22, 2016 Needs call back from Medical Staff Aldair Knowles MD [facility] Aug 22, 2016 Problems Problem Type [...]
--- OUTSIDE RECORDS SUMMARY | 2018-06-02 11:56 | XMS REPORT ---
Author Author Aldair Knowles [facility] eClinicalWorks Address Unknown Phone Unavailable Care Team Providers Care Saas Architect Name Role Phone Aldair Knowles Unavailable Allergies, Adverse Reactions, Alerts Substance Reaction Event Type N.K.D.A. 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 Assessment Neurasthenia F48.8 Active Assessment Elevated blood pressure (not hypertension) R03.0 Active Problem Hyperlipidemia E78.5 Active Problem Essential hypertension, benign 401.1 Active Problem Chronic rhinitis 472.0 Active Problem Tension headache 307.81 Active Problem Subjective tinnitus 388.31 Active Problem Headache 784.0 Jul 16, 2012 Active Problem 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 Jul 16, 2012 Active Problem Nonspecific (abnormal) findings on radiological and other examination of gastrointestinal tract 793.4 Jul 16, 2012 Active Problem Chronic rhinitis 472.0 Jul 16, 2012 Active Problem Annual Physical (Routine general medical examination at health care facility) V70.0 Jun 23, 2012 Active Problem Special screening for malignant neoplasms, colon V76.51 Jun 23, 2012 Active Problem Hyperglycemia (Other abnormal blood chemistry) 790.6 Jul 16, 2012 Active Problem Essential hypertension, benign 401.1 Jun 23, 2012 Active Assessment Overweight E66.3 Active Problem Familial hyperlipoproteinemia, 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 Do you use supplements Yes flax seed and omega-3 February 12, 2016 Tobacco Use: . Are you a: former smoker quit February 12, 2016 Caffeine intake? . Status: Yes, What type: Coffee, Soft Drinks 4-6 coffees per day, 1 soda per week February 12, 2016 Do you drink alcohol? . Status: Yes, Type: Liquor mixed drinks, Frequency Socially, Quantity 1 February 12, 2016 Family history Qualifier Description Comment Date Reported Maternal Grandmother Comment not available February 12, 2016 Paternal Grandmother Comment not available February 12, 2016 Siblings alive sister (breast cancer) February 12, 2016 Maternal Grandfather Comment not available February 12, 2016 Children Comment not available February 12, 2016 Father alive Comment not available February 12, 2016 Paternal Grandfather Comment not available February 12, 2016 Mother Comment not available February 12, 2016 Other: Comment not available February 12, 2016 Vital Signs Date/Time: February 12, 2016 Weight 167.4 lbs Height 65 in Temperature 98.4 F Cardiac Monitoring Heart Rate 78 /min Summary Purpose eClinicalWorks Submission
--- OUTSIDE RECORDS SUMMARY | 2018-06-02 11:56 | XMS REPORT ---
Author Author Aldair Knowles e[employer] Address Unknown Phone Unavailable Care Team Providers Care Natural Fabricator Name Role Phone Aldair Knowles CP Unavailable Encounters Encounter Location Date labs & refills Aldair Knowles MD [facility] Aug 20, 2016 Other Aldair Knowles MD [facility] Aug 23, 2016 Axiron refill not covered by insurance Aldair Knowles MD [facility] Oct 01, 2016 Prior Auth Aldair Knowles MD [facility] Oct 02, 2016 follow up labs Aldair Knowles MD [facility] February 12, 2016 Needs call back from Medical Staff Aldair Knowles MD [facility] Aug 22, 2016 Needs call back from Medical Staff Aldair Knowles MD [facility] Aug 22, 2016 Problems Problem Type Condition [...]
--- OUTSIDE RECORDS SUMMARY | 2018-06-02 11:56 | XMS REPORT ---
Author Author Aldair Knowles [facility] eClinicalWorks Address Unknown Phone Unavailable Care Team Providers Care Postulant Name Role Phone Aldair Knowles CP Unavailable Allergies, Adverse Reactions, Alerts Substance Reaction Event Type N.K.D.A. Info Not Available Non Drug Allergy Problems Problem Type Condition Code Onset Dates Condition Status Assessment Male hypogonadism E29.1 Active Assessment Mixed hyperlipidemia E78.2 Active Problem Special screening for malignant neoplasms, colon V76.51 Jun 23, 2012 Active Problem Nonspecific (abnormal) findings on radiological and other examination of gastrointestinal tract 793.4 Active Problem Annual Physical (Routine general medical examination at health care facility) V70.0 Jun 23, 2012 Active Problem Tension headache 307.81 Active Problem Essential hypertension, benign 401.1 Active Problem Chronic rhinitis 472.0 Active Problem Hyperglycemia (Other abnormal blood chemistry) 790.6 Active Problem Male hypogonadism E29.1 Active Problem Headache 784.0 Jul 16, 2012 Active Problem Mixed hyperlipidemia E78.2 Active Problem Familial hyperlipoproteinemia, 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 Jun 23, 2012 Active Problem Type 2 diabetes mellitus with other specified complication E11.69 Active Problem Gallbladder sludge K82.8 Active Problem Elevated blood-pressure reading, without diagnosis of hypertension R03.0 Active Problem Hx of colonic polyps Z86.010 Active Problem History of BPH Z87.438 Active Problem Chronic rhinitis 472.0 Active Problem History of colon polyps V12.72 Active Problem High serum estradiol R79.89 Active Problem 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 Jul 16, 2012 Active Problem Hepatic steatosis K76.0 Active Problem Abnormal findings on diagnostic imaging of liver and biliary tract R93.2 Active Problem Elevated hematocrit R71.8 Active Problem RUQ abdominal pain R10.11 Active Assessment High serum estradiol R79.89 Active Problem Tension headache 307.81 Active Assessment Elevated hematocrit R71.8 Active Problem 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 Problem Essential hypertension, benign 401.1 Active Assessment Hx of colonic polyps Z86.010 Active Problem Subjective tinnitus 388.31 Active Problem Hyperlipidemia 272.4 Active Problem Hyperlipidemia E78.5 Active Problem Hyperglycemia (Other abnormal blood chemistry) 790.6 Active Problem Nonspecific (abnormal) findings on radiological and other examination of gastrointestinal tract 793.4 Active Medications Medication Code System Code Instructions Start Date End Date Status Dosage Fluticasone Propionate [facility] 67674427789 50 MCG/ACT Nasally twice a day (bid) Active 1 spray in each nostril Simvastatin [facility] 62687483530 40 mg Orally Once a day Active 1 tablet in the evening Anastrozole [facility] 22462515132 1 MG Orally Once per week Jul 06, 2018 Active 1 tablet Axiron [facility] 11050229298 30 MG/ACT Topical once a day Active 1 pump under each axilla Vital Signs Date/Time: Apr 07, 2018 Weight 164.6 lbs Height 65 in Temperature 97.0 F Cardiac Monitoring Heart Rate 96 /min BMI 27.39 Index Results No Known Results Summary Purpose eClinicalWorks Submission
--- OUTSIDE RECORDS SUMMARY | 2018-06-02 11:56 | XMS REPORT ---
Author Author lAdair Knowles Organization [employer] Address Unknown Phone Unavailable Care Team Providers Care Bus Washer Name Role Phone Aldair Knowles CP Unavailable [...]
--- OUTSIDE RECORDS SUMMARY | 2018-06-02 11:56 | XMS REPORT ---
Author Author Aldair Knowles [facility] eClinicalWorks Address Unknown Phone Unavailable Care Team Providers Care Plant Engineering Supervisor Name Role Phone Aldair Knowles Unavailable Encounters Encounter Location Date follow up labs Aldair Knowles MD [facility] February 12, 2016 Needs call back from Medical Staff Aldair Knowles MD [facility] Aug 22, 2016 Needs call back from Medical Staff Aldair Knowles MD [facility] Aug 22, 2016 Problems Problem [...]
--- OUTSIDE RECORDS SUMMARY | 2018-06-02 11:56 | XMS REPORT | Encounter Summary ---
Author Organization Unknown Address [address] [place] [address] Phone [phone] Reason for Visit Medical Complaint Instructions 1. Acute upper respiratory infection Bromfed DM 2 mg-30 mg-10 mg/5 mL syrup Discussion Note: None recorded. Patient educational handouts: No information available. Plan of Care Patient Instructions take bromfed as needed. it can cause drowsiness. do not drive will on this medication. follow up pcp Reminders Provider Appointments None recorded. Lab None recorded. Referral None recorded. Procedures None recorded. Surgeries None recorded. Imaging None recorded. Medications Name Start Date Axiron 30 mg/actuation (1.5 mL) transderm solution in metered pump Bromfed DM 2 mg-30 mg-10 mg/5 mL syrup Take 10 mL 3 times a day by oral route. simvastatin 40 mg tablet Tamiflu 75 mg capsule Medications Administered None recorded. Vitals Height Weight BMI Blood Pressure 5 ft 5 in 161 lbs 26.8 120/76 Lab Results None recorded. Allergies Name Reaction Severity Onset NKDA Problems Name Status Onset Date Source Otitis Media Active Encounter Allergic Rhinitis Active Encounter Influenza Active Encounter Influenza-like Symptoms Active Encounter Procedures None recorded. Vaccine List None recorded. Social History Smoking Status Former Smoker Past Encounters 09/17/2016 Acute Upper Respiratory Infection RUSSEL Bruce-C: [address] [place] [address], Ph. History of Present Illness Yvewj-[id number]-Tadtbcw Reported By: Patient HPI: Location: head/sinuses. Quality: nasal/sinus congestion, dry cough. Duration: 4days. Severity: moderate. Onset/Timing: gradual. Context: no sick contacts, no foreign travel, non-smoker. Modifying factors: OTC medication. Associated Symptoms: no sputum production, no shortness of breath, no wheezing, no change in number of pillows needed to sleep at night, no sweats, no significant weight gain, no significant weight loss, no morning cough, no sore throat, no vomiting, no diarrhea, no rash, no nausea, no fever, no headache, muscle aches Review of Systems:ROS as noted in the HPI Review of Systems Basic Reported By: Patient Physical Exam Adult Basic, Adult Male Complete Reported By: Patient Constitutional: General Appearance: healthy-appearing, well-nourished, well-developed. Level of Distress: NAD. Ambulation: ambulating normally Psychiatric: Mental Status: active and alert Eyes: Lids and Conjunctivae: non-injected, no discharge Oqn-Kcgv-Bzblx-Throat: Ears: no lesions on external ear, no outer ear tenderness, EACs clear, TMs clear, TM mobility normal. Hearing: no hearing loss. Nose: no lesions on external nose, post nasal drip; congestion. Lips, Teeth, and Gums: no mouth or lip ulcers. Oropharynx: moist mucous membranes, no erythema, no exudates, tonsils not enlarged Neck: Neck: trachea midline. Lymph Nodes: no cervical LAD Lungs: Respiratory effort: no dyspnea, no tachypnea, no use of accessory muscles, no intercostal retractions. Auscultation: breath sounds normal, good air movement Cardiovascular: Heart Auscultation: RRR, no murmurs
--- OUTSIDE RECORDS SUMMARY | 2018-06-02 11:56 | XMS REPORT ---
Author Author Aldair Knowles Organization eClinicalWorks Address Unknown Phone Unavailable Care Team Providers Care Grease And Tallow Pumper Name Role Phone Aldair Knowles CP Unavailable [...]
--- OUTSIDE RECORDS SUMMARY | 2018-06-02 11:56 | XMS REPORT | Encounter Summary ---
Author Organization Unknown Address [address] [place] [address] Phone [phone] Reason for Visit Medical Complaint Instructions 1. Viral upper respiratory tract infection fluticasone 50 mcg/actuation nasal spray,suspension rapid flu (A+B) 2. Acute pharyngitis sore throat: care instructions rapid strep group A, throat 3. Posterior rhinorrhea 4. Cough cough: care instructions 5. Tachycardia 6. Body mass index 25-29 - overweight body mass index: care instructions Discussion Note explained to patient regarding viral vs bacterial infection. Encouraged adequate hydration and fluids. Discussed hand hygiene and CDC guidelines for viral infections. If new, worsening or persistance of symptoms follow up with PCP. If SOB, wheezing, fever, difficulty swallowing or abdominal pain go to ED. Pt verbalizes understanding and agrees with plan of care. May alternate Motrin and Tylenol for fever, pain or discomfort as needed per label instructions. F/U with PCP for heartrate elevation and avoid decongestant Plan of Care Reminders Provider Appointments None recorded. Lab Rapid Flu (A+B) 04/05/2018 [facility] Rapid Strep Group a, Throat 04/05/2018 [facility] Referral None recorded. Procedures None recorded. Surgeries None recorded. Imaging None recorded. Medications Name Start Date fluticasone 50 mcg/actuation nasal spray,suspension Black 2 sprays twice a day by intranasal route as directed for 10 days. simvastatin 40 mg tablet Medications Administered None recorded. Vitals Height Weight BMI Blood Pressure 5 ft 5 in 166 lbs 27.6 kg/m2 (1) 120/88 mm[Hg] (2) 100/70 mm[Hg] Lab Results Date Name Specimen Result Interpretation Description Value Range Status Address Rapid Strep Group a, Throat Result negative [facility]: [address] [place] [address] Swab Location Left and Right tonsillar pillars [facility]: [address] [place] [address] Rapid Flu (A+B) Influenza a negative [facility]: [address] [place] [address] Influenza B negative [facility]: [address] [place] [address] Allergies Code Code System Name Reaction Severity Status Onset NKDA Problems Name Status Onset Date Source Body Mass Index 25-29 - Overweight Active 04/05/2018 Procedures None recorded. Vaccine List None recorded. Social History Smoking Status Former Smoker Past Encounters 04/05/2018 Viral Upper Respiratory Tract Infection; Acute Pharyngitis; Posterior Rhinorrhea; Cough; Tachycardia; Body Mass Index 25-29 - Overweight Cassie Templeton PA-C: [address] [place] [address], Ph. History of Present Illness Yifiw-Jfdcnrbakn-Kxtlerr Reported By: Patient HPI: Location: head/sinuses, throat. Quality: productive cough, colored phlegm, nasal/sinus congestion, hacking cough. Duration: 3days. Severity: mild. Onset/Timing: sudden. Context: no sick contacts, no foreign travel, non-smoker, allergies. Modifying factors: OTC medication. Associated Symptoms: no wheezing, no change in number of pillows needed to sleep at night, no sweats, no significant weight gain, no significant weight loss, no morning cough, no vomiting, no diarrhea, no rash, no nausea, no fever, no muscle aches, yellow sputum, shortness of breath, sore throat, headache; chills, sweats Review of Systems Basic Reported By: Patient Constitutional: Constitutional: no fever Eyes: Eyes: no eye complaints Lxpc-Xmgu-Wluli-Throat: Ears: no ear complaints. Nose: nose/sinus problems. Mouth/Throat: no bleeding gums, no mouth complaints, no teeth problems, sore throat Cardiovascular: Cardiovascular: no chest pain, no shortness of breath, no known heart murmur Respiratory: Respiratory: no wheezing, no shortness of breath, cough Gastrointestinal: Gastrointestinal: no abdominal pain, no vomiting / diarrhea Genitourinary: Genitourinary: no urinary complaints, no discharge Musculoskeletal: Musculoskeletal: no muscle weakness, no arthralgias/joint pain, no back pain, muscle aches Skin: Skin: no abnormal / changing mole, no jaundice, no rashes Neurologic: Neurologic: no loss of consciousness, no weakness, no numbness, no seizures, no dizziness, no headaches, headache Physical Exam Adult Basic, Adult Male Complete Reported By: Patient Constitutional: General Appearance: healthy-appearing, well-nourished, well-developed. Level of Distress: NAD. Ambulation: ambulating normally Psychiatric: Mental Status: active and alert. Orientation: to time, to place, to person Eyes: Lids and Conjunctivae: non-injected, no discharge, no pallor. Pupils: PERRLA. EOM: EOMI. Sclerae: non-icteric. Vision: acuity grossly intact, peripheral vision grossly intact Tex-Mjmx-Yyikw-Throat: Ears: no lesions on external ear, no outer ear tenderness, EACs clear, TMs clear, TM mobility normal, middle ear fluid; bilateral. Hearing: no hearing loss. Nose: no lesions on external nose, nares patent, no septal deviation, nasal passages clear, no sinus tenderness, nasal discharge, nasal discharge--purulent, nasal discharge--rhinorrhea, post nasal drip. Lips, Teeth, and Gums: no mouth or lip ulcers, no bleeding gums, normal dentition. Oropharynx: moist mucous membranes, no erythema, no exudates, tonsils not enlarged; slight cobblestoning Neck: Neck: supple, trachea midline, no masses, FROM. Lymph Nodes: no cervical LAD, no supraclavicular LAD Lungs: Respiratory effort: no dyspnea, no tachypnea, no use of accessory muscles, no intercostal retractions. Auscultation: breath sounds normal, good air movement Cardiovascular: Heart Auscultation: RRR, no murmurs
--- OUTSIDE RECORDS SUMMARY | 2018-06-02 11:56 | XMS REPORT | Encounter Summary ---
Author Organization Unknown Address [address] [place] [address] Phone [phone] Reason for Visit Medical Complaint Instructions 1. Influenza-like symptoms Tamiflu 75 mg capsule rapid flu (A+B) Discussion Note: None recorded. Patient educational handouts: No information available. Plan of Care Patient Instructions Take med as prescribed. Increase fluid intake. Handwashing, cover mouth when coughing. Avoid sharing utensils. If no fever for 24 hrs, then may return to work. May take otc motrin/tynenol for fever/pain. If symptoms worsen, follow with sob nausea/vomiting, call clinic or se pcp. If after hrs, see ER. Once recovered, recommend pt to get flu vaccine. If other family members have similar symptoms, encourage to come in to get treatment. Reminders Provider Appointments None recorded. Lab Rapid Flu (A+B) 06/23/2016 [facility] Referral None recorded. Procedures None recorded. Surgeries None recorded. Imaging None recorded. Medications Name Start Date simvastatin 40 mg tablet Tamiflu 75 mg capsule Take 1 capsule twice a day by oral route as directed for 5 days. Medications Administered None recorded. Vitals Height Weight BMI Blood Pressure 5 ft 5 in 168 lbs 28 130/80 Lab Results Date Name Result Description Value Range Status Rapid Flu (A+B) Influenza a negative Influenza B negative Allergies Name Reaction Severity Onset NKDA Problems Name Status Onset Date Source Otitis Media Active Encounter Allergic Rhinitis Active Encounter Influenza Active Encounter Influenza-like Symptoms Active Encounter Procedures None recorded. Vaccine List None recorded. Social History Smoking Status Current Every Day Smoker Past Encounters 06/23/2016 Influenza-like Symptoms Lyndsey Pan STOCK BROKER SUPERVISOR: [address] [place] [address], Ph. History of Present Illness Nmqjhgs-Pwnhn-Bjn Reported By: Patient HPI: Quality: cannot identify. Duration: constant. Severity: subjective temperature. Onset/Timing: first recorded 2 days. Context: no tick/insect bites, no recent travel, no new medications, ill contacts. Associated Symptoms: cough, nasal discharge. Modifying Factors OTC medication Review of Systems Basic Reported By: Patient Constitutional: Constitutional: fever Eyes: Eyes: no eye complaints Afvd-Idfm-Knaun-Throat: Ears: no ear complaints. Nose: nose/sinus problems. Mouth/Throat: no sore throat, no bleeding gums, no mouth complaints, no teeth problems Cardiovascular: Cardiovascular: no chest pain, no shortness [...] no numbness, no seizures, no dizziness, no headaches Physical Exam Adult Basic, Adult Male Complete Constitutional: General Appearance: healthy-appearing, well-nourished, well-developed. Level of Distress: NAD. Ambulation: ambulating normally Psychiatric: Mental Status: active and alert. Orientation: to time, to place, to person Eyes: Lids and Conjunctivae: non-injected, no discharge, no pallor. Pupils: PERRLA. Corneas: grossly intact. EOM: EOMI. Lens: clear. Sclerae: non-icteric. Vision: acuity grossly intact, peripheral vision grossly intact Ntc-Utun-Maphm-Throat: Ears: no lesions on external ear, no outer ear tenderness, EACs clear, TMs clear. Hearing: no hearing loss. Nose: no lesions on external nose, nares patent, no septal deviation, nasal passages clear, no sinus tenderness, nasal discharge--rhinorrhea. Lips, Teeth, and Gums: no mouth or lip ulcers, no bleeding gums, normal dentition. Oropharynx: moist mucous membranes, no erythema, no exudates, tonsils not enlarged Neck: Neck: supple, trachea midline, no masses, FROM. Lymph Nodes: no cervical LAD, no supraclavicular LAD. Thyroid: no enlargement, non-tender, no nodules Lungs: Respiratory effort: no dyspnea, no tachypnea, no use of accessory muscles, no intercostal retractions. Auscultation: breath sounds normal, good air movement Cardiovascular: Heart Auscultation: RRR, no murmurs
== END | disposition home or self-care (01) ==
LOC: OR 07:03
PROVIDERS: ATTEND Internal Medicine Gastroenterology
DX: Z12.11 Encounter for screening for malignant neoplasm of colon (principal); K63.5 Polyp of colon; K62.1 Rectal polyp; K31.7 Polyp of stomach and duodenum; K29.70 Gastritis, unspecified, without bleeding; K20.9 Esophagitis, unspecified; K44.9 Diaphragmatic hernia without obstruction or gangrene; K21.9 Gastro-esophageal reflux disease without esophagitis; K31.89 Other diseases of stomach and duodenum; K63.89 Other specified diseases of intestine; K57.30 Diverticulosis of large intestine without perforation or abscess without bleeding; K64.8 Other hemorrhoids; I10 Essential (primary) hypertension; Z91.041 Radiographic dye allergy status; Z01.810 Encounter for preprocedural cardiovascular examination; Z87.891 Personal history of nicotine dependence
CPT/HCPCS: 43239; 45384; 93005; J1610; J2250

== ENCOUNTER → 2021-05-26 | Day surgery (SDC) | payer OTHER ==
[~2021-05-26] MED LIST changes: +BLOOD PRESSURE MED; +DIABETIC MED; +GLIMEPIRIDE2 MG PO; -GLUCAGON FOR INJ 1 MG VIAL ONE; +LISINOPRIL2.5 MG PO; +PROPOFOL IV EMULSION 10 MG/ML 20 ML VIAL ONE; -PROPOFOL IV EMULSION 10 MG/ML 50 ML VIAL ONE
[2021-05-26 13:00] VITALS: BP 141/113
== END | disposition home or self-care (01) ==
LOC: OR 09:39
PROVIDERS: ATTEND Internal Medicine Gastroenterology
DX: Z09 Encounter for follow-up examination after completed treatment for conditions other than malignant neoplasm (principal); D12.2 Benign neoplasm of ascending colon; K62.1 Rectal polyp; K63.89 Other specified diseases of intestine; K57.30 Diverticulosis of large intestine without perforation or abscess without bleeding; K64.8 Other hemorrhoids; G47.33 Obstructive sleep apnea (adult) (pediatric); I10 Essential (primary) hypertension; E11.9 Type 2 diabetes mellitus without complications; E78.00 Pure hypercholesterolemia, unspecified; Z01.810 Encounter for preprocedural cardiovascular examination; Z01.812 Encounter for preprocedural laboratory examination; Z20.822 Contact with and (suspected) exposure to COVID-19; Z79.82 Long term (current) use of aspirin; Z79.84 Long term (current) use of oral hypoglycemic drugs; Z68.29 Body mass index [BMI] 29.0-29.9, adult; Z87.891 Personal history of nicotine dependence
CPT/HCPCS: 36415; 45380; 45384; 45385; 82948; 93005; J2250; J2704; J3010; U0002